=== PATIENT | male | born 1960 | race Caucasian/White ===

== ENCOUNTER 2018-07-02 11:38 | Emergency (ER) | payer OTHER ==
[~2018-07-02 11:38] MED LIST: ALTACE10 M1 PO; ALTACE5 MG PO; COUMADIN 1 MG TA1 MG PO; GLUCOPHAGE500 MG PO; HYDRODIURIL 2525 MG PO; LANTUS INS100 UNITS/ SC; LANTUS100 U/ML SC; LEVEMIR 10100 UNITS/ SC; LOVENOX 10100 MG/1 M SC; LOVENOX150 MG/ML SC; NEXIUM 40MG40 MG PO; NOVOLOG100 U/ML SC; OXYCODONE5 MG PO; OXYCONTIN20 MG PO; PREVALITE4 GM/5.5 G PO; REGLAN10 MG PO; VALIUM5 M1 PO; XYLOCAINE VISCO20 ML PO
--- NOTE | 2018-07-02 12:01 | ED GENERAL ADULT ---
History of Present Illness General Chief Complaint: General Adult Stated Complaint: JOINT PAIN Source: patient, family, old records Exam Limitations: no limitations Vital Signs & Intake/Output Vital Signs & Intake/Output Vital Signs Date Time Temp Pulse Resp B/P B/P Pulse O2 O2 Flow FiO2 Mean Ox Delivery Rate 07/02 1223 98 Room Air 07/02 1141 98.3 91 18 156/79 98 Room Air Allergies Coded Allergies: MDX - Amoxicillin (Severe, ANAPHYLAXIS 10/12/11) MDX - Azithromycin (From Zithromax Z Pack) (Severe, FACIAL EDEMA 10/12/11) MDX - Morphine (MORPHINE) (VOMITING 07/22/14) MDX - Penicillin (Penicillin) (UNKNOWN 12/15/11) MDX - SULFA (sulfonamide) (SULFA (sulfonamide)) (UNKNOWN 07/09/12) Reconcile Medications CHOLESTYRAMINE/ASPARTAME (Prevalite Packet) 4 GRAM POWD.PACK 4 GM PO TID TRIGLYCERIDES (Reported) Diazepam (Valium) 5 MG TABLET 1 TAB PO Q8H PRN ANXIETY (Reported) Doxycycline Hyclate 100 MG CAPSULE 1 CAP PO BID LYME ARTHRITIS Enoxaparin Sodium (Lovenox) 150 MG/ML SYRINGE 1 DOSE SC DAILY BLOOD THINNER TAKE FOR 30 DAYS AND THEN FOLOW UP WITH IRON SETTER, DR. DOMINGUEZ. Esomeprazole (Nexium) 40 MG CAPSULE.DR 40 MG PO DAILY GASTRICPARESIS ( Reported) Indomethacin 25 MG CAPSULE 1 CAP PO TID PRN PAIN with food Insulin Aspart, Recombinant (Novolog) 100 U/ML JOAN 0 UNITS SC TIDAC/HS DIABETES BEFORE MEALS FS Units <80 (0) (81-150) (14) (151-200) (16) (201-250) (18) (251-300) (20) (301-350) (22) (351-400) (24) >400 (26) Call Doctor AT BEDTIME FS Units <80 (0) (81-100) (0) (101-200) (0) (201-250) (2) (251-300) (4) (301-350) (6) (351-400) (8) >400 (10) Call Doctor Insulin Detemir (Levemir) 100 UNIT/ML VIAL 30 UNITS SC BID DIABETES Metformin Hydochloride (Glucophage) 500 MG TABLET 500 MG PO 0800,1700 Diabetes Mellitus METOCLOPRAMIDE HCL (Reglan) 10 MG TABLET 1 TAB PO TID PRN NAUSEA VOMITING ( Reported) Oxycodone Cr (OxyContin) 20 MG TAB.ER.12H 80 MG PO TID PAIN MANAGEMENT ( Reported) Oxycodone Hydrochloride (Oxycodone) 5 MG TAB 15 MG PO EVERY 4 HRS/AWAKE PAIN MANAGEMENT (Reported) Ramipril (Altace) 10 MG CAPSULE 1 TAB PO DAILY BLOOD PRESSURE (Reported) Triage Note: 58 YO MALE TO TRIAGE FOR EVAL OF JOINT PAIN X 2 DAYS. STATES WAS OUTSIDE WORKING IN THE [place] A COUPLE DAYS AGO, DENIES ANY RASHES. Triage Nurses Notes Reviewed? yes HPI: Patient presents with pain in multiple joints. Patient states the pain has been moving from jointed joint over the past 2 weeks. He has not noticed any rash. There are no fevers or chills. The pain is constant and aching in nature. The pain increased with movement of the joint. There is no radiation. The pain is 10 out of 10 and the pain is unrelieved with any of his pain medication that he has at home. Patient used to be a [employer] and spent many times in the [employer] and has pulled many ticks off of him over the years. He denies any penile discharge. Past History Travel History Traveled to [place] past 21 day No Medical History Any Pertinent Medical History? see below for history Neurological: NONE EENT: NONE Cardiovascular: hypertension, hyperlipidemia Respiratory: NONE Gastrointestinal: NONE Hepatic: NONE Renal: NONE Musculoskeletal: DVT Psychiatric: NONE Endocrine: diabetes Blood Disorders: NONE Cancer(s): NONE DESIGN SUPERVISOR/Reproductive: NONE History of MRSA: No History of VRE: No History of CDIFF: Yes Pneumonia Vaccine: 06/30/13 Influenza Vaccine: 06/30/13 Surgical History Surgical History: LEFT aka Psychosocial History Who do you live with Spouse Services at Home None What is your primary language [place] Tobacco Use: Never used ETOH Use: denies use Illicit Drug Use: denies illicit drug use Family History Family History, If Any: FATHER, ; Cause: Complication of diabetes mellitus. MOTHER (BLOOD CLOTS). MOTHER (BLOOD CLOTS). Hx Contributory? No Review of Systems Review of Systems Constitutional: Reports: no symptoms. Respiratory: Reports: no symptoms. Cardiovascular: Reports: no symptoms. Musculoskeletal: Reports: see HPI, joint pain. Neurological/Psychological: Reports: no symptoms. Immunologic/Allergic: Reports: no symptoms. Physical Exam Physical Exam General Appearance: well developed/nourished, alert, awake, anxious, mild distress Head: atraumatic Eyes: Bilateral: PERRL, EOMI. Neck: normal inspection, supple, full range of motion Respiratory: normal breath sounds, chest non-tender, no respiratory distress, lungs clear Cardiovascular: regular rate/rhythm, normal peripheral pulses Gastrointestinal: normal bowel sounds, soft, non-tender Neurologic/Psych: no motor/sensory deficits, awake, alert, oriented x 3, normal gait Lymphatic: no anterior cervical [place] Core Measures ACS in differential dx? No CVA/TIA Diagnosis: No Sepsis Present: No Sepsis Focused Exam Completed? No Progress Differential Diagnoses I considered the following diagnoses in my evaluation of the patient: [Lyme arthritis, rheumatoid, rhabdo] Plan of Care: Orders Procedure Date/time Status LYME TITRE 07/02 120 Active WESTERGREN SED RATE 07/02 120 Active COMPREHENSIVE METABOLIC PANEL 07/02 120 Complete CREATINE PHOSPHOKINASE 07/02 1203 Complete CBC WITHOUT DIFFERENTIAL 07/02 1203 Active Laboratory Tests 07/02/18 1215: Anion Gap 9, Estimated GFR > 60, BUN/Creatinine Ratio 17.5, Glucose 172 H, Calcium 9.7, Total Bilirubin 0.5, AST 25, ALT 33, Alkaline Phosphatase 85, Creatine Kinase 30 L, Total Protein 7.1, Albumin 4.2, Globulin 2.9, Albumin/ Globulin Ratio 1.4, CBC w Diff NO MAN DIFF REQ, RBC 5.15, MCV 85.3, MCH 27.7, MCHC 32.5 L, RDW 13.9, MPV 6.6 L, Gran % 70.4, Lymphocytes % 18.1 L, Monocytes % 9.0, Eosinophils % 1.3, Basophils % 1.2, Absolute Granulocytes 6.8 H, Absolute Lymphocytes 1.7, Absolute Monocytes 0.9 H, Absolute Eosinophils 0.1 , Absolute Basophils 0.1, ESR Westergren Pending, Lyme Disease Antibody Pending Initial ED EKG: none Departure Departure Disposition: HOME OR SELF CARE Condition: Stable Clinical Impression Primary Impression: Arthralgia Referrals: Louise HENRIQUEZ,Wilson Templeton (PCP/Family) Additional Instructions: Take doxycycline as prescribed. The antibiotic can cause photosensitivity. Skin so make sure you wear a broad brimmed hat as well as sunblock with at least SPF 30 every single time you gooutin the sun. Follow-up with your primary care physician. Return if symptoms worsen or for any concerns. Departure Forms: Customer Survey General Discharge Information Prescriptions: Current Visit Scripts Doxycycline Hyclate 1 CAP PO BID #42 CAP Indomethacin 1 CAP PO TID PRN PAIN #30 CAP with food Critical Care Note Critical Care Note Critical Care Time: non-applicable
[2018-07-02 12:24] LABS: ABSOLUTE BASOPHIL COUNT 0.1 /CUMM (0.0-0.2); ABSOLUTE EOSINOPHIL COUNT 0.1 /CUMM (0.0-0.7); ABSOLUTE GRANULOCYTE CT 6.8 /CUMM (1.4-6.5); ABSOLUTE LYMPH COUNT 1.7 /CUMM (1.2-3.4); ABSOLUTE MONOCYTE COUNT 0.9 /CUMM (0.10-0.60); BASOPHIL % 1.2 % (0.0-2.0); EOSINOPHIL % 1.3 % (0-5); GRANULOCYTE % 70.4 % (42.2-75.2); MEAN CORPUSCULAR HGB 27.7 PG (27.0-31.0); MEAN CORPUSCULAR HGB CONC 32.5 G/DL (33.0-37.0); MEAN CORPUSCULAR VOLUME 85.3 FL (80.0-94.0); MEAN PLATELET VOLUME 6.6 FL (7.4-10.4); PLATELET COUNT 316 /CUMM (130-400); RBC DISTRIBUTION WIDTH 13.9 % (11.5-14.5); RED BLOOD CELL CT 5.15 /CUMM (4.70-6.10); WHITE BLOOD CELL COUNT 9.6 /CUMM (4.8-10.8)
[2018-07-02] MEDS ORDERED: DOXYCYCLINE HY100 M2 PO (13:04)
[2018-07-02] MEDS ORDERED: INDOMETHACIN25 M1 PO (13:05)
[2018-07-02 13:15] VITALS: BP 148/70
== END 2018-07-02 13:16 ==
LOC: ERH 11:38
PROVIDERS: Emergency Medicine
DX: M25.50 Pain in unspecified joint (principal)
CPT/HCPCS: 86618